=== PATIENT | female | born 1975 | race Caucasian/White ===

== ENCOUNTER 2018-04-26 07:40 | Emergency (ER) | payer OTHER ==
[2018-04-26] MEDS ORDERED: DEXAMETHASONE 10 MG/ML VIAL PO STA (08:00)
--- NOTE | 2018-04-26 08:07 | ED Physician Documentation ---
PD HPI HEENT - Stated complaint Stated Complaint: SORE THROAT/COUGHING - Chief complaint Chief Complaint: Heent - History obtained from History obtained from: Patient - History of Present Illness Timing - onset: How many days ago (5) Timing - duration: Days (5) Timing - details: Gradual onset, Still present Location: Sinuses, Throat Improves: Medication Worsens: Swalllowing Associated symptoms: Congestion, Rhinorrhea, Swollen nodes, Facial swelling, Cough Similar symptoms before: Diagnosis (strep) Recently seen: Not recently seen - Additional information Additional information: 42-year-old female is visiting from [place] and she is developed a sore throat about 4 days ago and she has had strep each year the past 3 years. She states that this is typical from the symptoms she has had each year and that she is having some pain with swallowing and she has a bit of a cough. She is also noted some swelling to the mid facial area. She has not had nausea or vomiting. Review of Systems Constitutional: reports: Fever, Chills Eyes: denies: Decreased vision Ears: denies: Ear pain Nose: reports: Rhinorrhea / runny nose, Congestion Throat: reports: Sore throat Cardiac: denies: Chest pain / pressure, Palpitations Respiratory: reports: Cough. denies: Dyspnea GI: denies: Vomiting : denies: Dysuria Skin: denies: Rash Musculoskeletal: denies: Neck pain, Back pain, Extremity pain PD PAST MEDICAL HISTORY - Past Medical History Past Medical History: No - Past Surgical History Past Surgical History: Yes - Present Medications Home Medications: Ambulatory Orders Medication Instructions Recorded Confirmed Azithromycin [Zithromax] 250 mg PO DAILY #6 tablet 04/26/18 - Allergies Allergies/Adverse Reactions: Allergies Allergy/AdvReac Type Severity Reaction Status Date / Time Penicillins Allergy Rash Verified 04/26/18 07:52 Sulfa (Sulfonamide AdvReac Nausea Verified 04/26/18 07:53 Antibiotics) - Social History Does the pt smoke?: No Smoking Status: Never smoker Does the pt drink ETOH?: No - Immunizations Immunizations are current?: Yes PD ED PE NORMAL - Vitals Vital signs reviewed: Yes (normal ) - General General: Alert and oriented X 3, No acute distress, Well developed/nourished, Other (gravelly voice) - HEENT HEENT: Atraumatic, PERRL, EOMI, Ears normal, Other (There are 2+ cryptic tonsils with exudate) - Neck Neck: Supple, no meningeal sign, No bony TTP - Cardiac Cardiac: RRR, No murmur - Respiratory Respiratory: No respiratory distress, Clear bilaterally - Abdomen Abdomen: Soft, Non tender - Derm Derm: Normal color, Warm and dry, No rash - Extremities Extremities: No deformity, No edema - Neuro Neuro: Alert and oriented X 3, assistant controller 2-12 intact, No motor deficit, No sensory deficit, Normal speech Eye Opening: Spontaneous Motor: Obeys Commands Verbal: Oriented GCS Score: 15 - Psych Psych: Normal mood, Normal affect Results - Vitals Vitals: Vital Signs - 24 hr 04/26/18 07:49 Temperature 35.7 C L Heart Rate 94 Respiratory 16 Rate Blood Pressure 124/68 O2 Saturation 97 Oxygen O2 Source Room air - Labs Labs: Laboratory Tests 04/26/18 08:00 Group A Strep Rapid POSITIVE H PD MEDICAL DECISION MAKING - ED course Complexity details: reviewed results, re-evaluated patient, considered differential, d/w patient ED course: 42-year-old female with enlarged cryptic tonsils has additional facial swelling and a history of strep. She is administered dexamethasone 10 mg orally and a rapid strep was obtained. - Sepsis Event Vital Signs: Vital Signs - 24 hr 04/26/18 07:49 Temperature 35.7 C L Heart Rate 94 Respiratory 16 Rate Blood Pressure 124/68 O2 Saturation 97 Oxygen O2 Source Room air Departure - Departure Disposition: 01 Home, Self Care Clinical Impression: Strep pharyngitis Condition: Stable Instructions: ED Strep Pharyngitis Conf Follow-Up: Your, doctor [Other] Prescriptions: Azithromycin [Zithromax] 250 mg PO DAILY #6 tablet
[2018-04-26 09:09] VITALS: BP 114/73
== END 2018-04-26 09:09 | disposition home or self-care (01) ==
LOC: ED 07:40 → MERGE 07:40 → ED 09:09
DX: J02.0 Streptococcal pharyngitis (principal)
CPT/HCPCS: 87430; 99283